=== PATIENT | male | born 1960 ===

== ENCOUNTER 2024-08-27 15:33 | Emergency (ER) | payer OTHER ==
[~2024-08-27] VITALS: Ht 167.6 cm; Wt 75.0 kg
[2024-08-27 15:53] VITALS: TEMP 97.9
[2024-08-27] MEDS: TraMADol HCL 50 MG TABLET PO ONE (16:47)
[2024-08-27 17:45] LABS: ALCOHOL, URINE DRUG SCREEN POSITIVE (NEGATIVE); AMPHET/METH SCREEN,URINE NEGATIVE (NEGATIVE); BARBITURATE SCREEN, URINE NEGATIVE (NEGATIVE); BENZODIAZEPINES SCREEN,URINE NEGATIVE (NEGATIVE); CANNABINOID SCREEN,URINE NEGATIVE (NEGATIVE); COCAINE SCREEN,URINE NEGATIVE (NEGATIVE); METHADONE SCREEN, URINE NEGATIVE (NEGATIVE); OPIATE SCREEN,URINE NEGATIVE (NEGATIVE); PHENCYCLIDINE SCREEN,URINE NEGATIVE (NEGATIVE)
[2024-08-27] MEDS: LIDOCAINE 1%/EPI 1:200,000/PF 30 ML VIAL SQ ONE (17:51)
[2024-08-27] MEDS: CeFAZolin SODIUM 1 GM VIAL IM ONE (19:27)
[2024-08-27] MEDS: PERTUSS(ACELL),DIPH,TET/PF 0.5 ML SYRINGE [ADULT] IM. ONE (19:31)
[2024-08-27] MEDS ORDERED: CEPH-558 PO (19:48)
[2024-08-27 20:11] VITALS: BP 137/72; PULSE 92; RESP 18; O2SAT 100
== END 2024-08-27 20:21 | disposition home or self-care (01) ==
LOC: EMS 15:33
DX: S01.81XA Laceration without foreign body of other part of head, initial encounter (principal); S01.311A Laceration without foreign body of right ear, initial encounter; W19.XXXA Unspecified fall, initial encounter; Y93.89 Activity, other specified; Y92.89 Other specified places as the place of occurrence of the external cause; Y99.8 Other external cause status
CPT/HCPCS: 99285; 12054; 70450; 36415; 70486; 72125; 90715; 90471; 96372; 80307; G0480; J0690; J3490